=== PATIENT | male | born 1955 | race Caucasian/White ===

== ENCOUNTER 2017-11-20 11:50 | Emergency (ER) | payer OTHER ==
[2017-11-20] MEDS ORDERED: Sodium Chloride 0.9% 10 ML Syringe FLUSH PRN (12:07)
[2017-11-20] MEDS ORDERED: Diltiazem 25 MG/5 ML SDV IVPUSH ONE (12:12)
[2017-11-20] MEDS ORDERED: Diltiazem 25 MG/5 ML SDV ONE ×3 (12:14→12:29)
[2017-11-20 12:15] VITALS: BP 120/86
[2017-11-20 12:38] LABS: ANION GAP 15.3; CHLORIDE,CL 105 mmol/L (101-111); SODIUM,NA 138 mmol/L (135-145)
[2017-11-20] MEDS ORDERED: Diltiazem 125 MG in Sodium Chloride 0.9% 100 ML IV ONE (12:40)
--- NOTE | 2017-11-20 13:14 | EDM.PDOC ---
ED HPI GENERAL MEDICAL PROBLEM - General Chief Complaint: Syncope Stated Complaint: IN BY [facility] AMB. NO BP PER [id number] Time Seen by Provider: 11/20/17 11:57 Source of Information: Reports: Patient, EMS, EMS Notes Reviewed, RN, RN Notes Reviewed History Limitations: Reports: No Limitations - History of Present Illness INITIAL COMMENTS - FREE TEXT/NARRATIVE: Pt to ER per [facility] with c/o near syncope. Patient states he was at work and was going to stand up when he got very dizzy and weak with chest pain, SOB, and diaphoresis. Pt . states he felt better when he sat down. Denies radiation of the chest pain. Denies pain at this time. EMS states gluc 121 en route. Denies significant health history, HTN, high cholesterol, prostate issues, all being treated. Has been told that he has had an irregular heartrate in the past. Onset: Today, Sudden - Related Data Allergies Allergy/AdvReac Type Severity Reaction Status Date / Time No Known Allergies Allergy Verified 11/20/17 12:15 Home Meds: Home Meds Albuterol [Proair HFA] 2 puff INH Q6H PRN 09/29/15 [History] Fluticasone/Salmeterol [Advair 100-50 Diskus] 1 puff INH ASDIRECTED PRN [History] Lisinopril 10 mg PO DAILY 09/29/15 [History] Omeprazole 1 tab PO DAILY PRN 09/29/15 [History] Terazosin HCl [Terazosin] 3 mg PO DAILY 09/29/15 [History] Past Medical History HEENT History: Reports: Impaired Vision Other HEENT History: wears glasses Cardiovascular History: Reports: High Cholesterol, Hypertension Respiratory History: Reports: Other (See Below) Other Respiratory History: gets weezy at times Gastrointestinal History: Reports: GERD Genitourinary History: Reports: BPH Musculoskeletal History: Reports: Fracture Other Musculoskeletal History: FRACTURE RIGHT Neurological History: Reports: None Psychiatric History: Reports: None Endocrine/Metabolic History: Reports: Obesity/BMI 30+ Hematologic History: Reports: None Immunologic History: Reports: None Oncologic (Cancer) History: Reports: None Dermatologic History: Reports: None - Infectious Disease History Infectious Disease History: Reports: Chicken Pox - Past Surgical History Head Surgeries/Procedures: Reports: None Male Surgical History: Reports: Vasectomy Endocrine Surgical History: Reports: None Neurological Surgical History: Reports: None Oncologic Surgical History: Reports: None Dermatological Surgical History: Reports: None Social & Family History - Tobacco Use Smoking Status *Q: Never Smoker Second Hand Smoke Exposure: No - Caffeine Use Caffeine Use: Reports: Coffee - Recreational Drug Use Recreational Drug Use: No ED ROS GENERAL - Review of Systems Review Of Systems: ROS reveals no pertinent complaints other than HPI. ED EXAM, GENERAL - Physical Exam Exam: See Below Exam Limited By: No Limitations General Appearance: Alert, WD/WN, No Apparent Distress Eye Exam: Bilateral Eye: EOMI, Normal Inspection Ears: Normal External Exam, Hearing Grossly Normal Nose: Normal Inspection Throat/Mouth: Normal Inspection, Normal Voice, No Airway Compromise Head: Atraumatic, Normocephalic Neck: Normal Inspection, Supple, Non-Tender, Full Range of Motion Respiratory/Chest: No Respiratory Distress, Lungs Clear, Normal Breath Sounds, No Accessory Muscle Use, Chest Non-Tender Cardiovascular: Normal Peripheral Pulses, No Edema, No Gallop, No JVD, No Murmur , No Rub, Tachycardia, Irregularly Irregular Peripheral Pulses: 2+: Radial (L), Radial (R) GI/Abdominal: Normal Bowel Sounds, Soft, Non-Tender, No Organomegaly, No Distention, No Abnormal Bruit, No Mass, Pelvis Stable (Male) Exam: Deferred Rectal (Males) Exam: Deferred Back Exam: Normal Inspection, Full Range of Motion, NT Extremities: Normal Inspection, Normal Range of Motion, Non-Tender, Normal Capillary Refill, No Pedal Edema Neurological: Alert, Oriented, CN II-XII Intact, Normal Cognition, Normal Gait, Normal Reflexes, No Motor/Sensory Deficits Psychiatric: Normal Affect, Normal Mood Skin Exam: Warm, Dry, Intact, Normal Color, No Rash Lymphatic: No Adenopathy EKG INTERPRETATION EKG Date: 11/20/17 Time: 11:56 Rhythm: A-Fib Rate (Beats/Min): 141 Comparison: NA - No Prior EKG EKG Interpretation Comments: PVC Course - Vital Signs Last Recorded V/S: Last Vital Signs Temp 97.6 F 11/20/17 12:03 Pulse 75 11/20/17 12:03 Resp 16 11/20/17 12:03 BP 120/86 11/20/17 12:03 Pulse Ox 98 11/20/17 12:03 Orthostatic Blood Pressure [ 129/106 Standing] Orthostatic Blood Pressure [ 116/71 Supine] - Orders/Labs/Meds Orders: Active Orders 24 hr Category Date Time Status EKG Documentation Completion [RC] STAT Care 11/20/17 12:07 Active Peripheral IV Care [RC] . DIRECTED Care 11/20/17 12:07 Active Chest 1V Frontal [CR] Stat Exams 11/20/17 12:07 Ordered UA W/MICROSCOPIC [URIN] Stat Lab 11/20/17 11:55 Received Sodium Chloride 0.9% [Normal Saline] 1,000 ml Med 11/20/17 13:15 Active IV ASDIRECTED Sodium Chloride 0.9% [Normal Saline] 100 ml Med 11/20/17 12:40 Active Diltiazem 125 mg IV 5 mg/hr Sodium Chloride 0.9% [Saline Flush] Med 11/20/17 12:07 Active 10 ml FLUSH ASDIRECTED PRN Peripheral IV Insertion Adult [OM.PC] Stat Oth 11/20/17 12:07 Ordered Medication Orders Diltiazem HCl 125 mg/ Sodium (Chloride) 125 mls @ 5 mls/hr IV .Q24H ONE; Protocol Stop: 11/21/17 12:39 Last Admin: 11/20/17 12:44 Dose: 5 mg/hr, 5 mls/hr Sodium Chloride (Normal Saline) 1,000 mls @ 100 mls/hr IV ASDIRECTED [facility] Last Admin: 11/20/17 12:00 Dose: 100 mls/hr Sodium Chloride (Saline Flush) 10 ml FLUSH ASDIRECTED PRN PRN Reason: Keep Vein Open Last Admin: 11/20/17 12:00 Dose: 10 ml Labs: Laboratory Tests 11/20/17 11/20/17 Range/Units 12:09 12:09 WBC 10.3 H (5.0-10.0) 10^3/uL RBC 5.15 (4.6-6.2) 10^6/uL Hgb 15.4 (14.0-18.0) g/dL Hct 45.5 (40.0-54.0) % MCV 88.3 (80-100) fL MCH 29.9 (27.0-34.0) pg MCHC 33.8 (33.0-35.0) g/dL Plt Count 216 (150-450) 10^3/uL Neut % (Auto) 74.8 (42.2-75.2) % Lymph % (Auto) 17.6 L (20.5-50.1) % [place] % (Auto) 6.2 (2-8) % Eos % (Auto) 1.1 (1.0-3.0) % Baso % (Auto) 0.3 (0.0-1.0) % Sodium 138 (135-145) mmol/L Potassium 4.3 (3.6-5.0) mmol/L Chloride 105 (101-111) mmol/L Carbon Dioxide 22.0 (21.0-31.0) mmol/L Anion Gap 15.3 BUN 16 (7-18) mg/dL Creatinine 1.3 (0.6-1.3) mg/dL Est Cr Clr Drug Dosing 65.73 mL/min Estimated GFR (MDRD) 56 BUN/Creatinine Ratio 12.30 Glucose 116 H (74-105) mg/dL Calcium 9.2 (8.4-10.2) mg/dl Total Bilirubin 0.8 (0.2-1.0) mg/dL AST 33 (10-42) IU/L ALT 38 (10-60) IU/L Alkaline Phosphatase 57 (42-121) IU/L Troponin I < 0.02 (0.00-0.02) ng/ml Total Protein 7.8 (6.7-8.2) g/dl Albumin 4.6 (3.2-5.5) g/dl Globulin 3.2 Albumin/Globulin Ratio 1.44 Meds: Medications Generic Name Dose Route Start Last Admin Trade Name Freq PRN Reason Stop Dose Admin Diltiazem HCl 125 mg/ Sodium 125 mls @ 5 mls/hr 11/20/17 12:40 11/20/17 12:44 Chloride IV 11/21/17 12:39 5 mg/hr .Q24H ONE 5 mls/hr Administration Protocol 5 MG/HR Sodium Chloride 1,000 mls @ 100 mls/hr 11/20/17 13:15 11/20/17 12:00 Normal Saline IV 100 mls/hr ASDIRECTED KATHY Administration Sodium Chloride 10 ml 11/20/17 12:07 11/20/17 12:00 Saline Flush FLUSH 10 ml ASDIRECTED PRN Administration Keep Vein Open Discontinued Medications Generic Name Dose Route Start Last Admin Trade Name Freq PRN Reason Stop Dose Admin Diltiazem HCl 20 mg 11/20/17 12:12 11/20/17 12:18 Diltiazem IVPUSH 11/20/17 12:13 20 mg ONETIME ONE Administration Diltiazem HCl Confirm 11/20/17 12:14 11/20/17 12:19 Diltiazem Administered 11/20/17 12:15 Not Given Dose 25 mg .ROUTE .STK-MED ONE Diltiazem HCl Confirm 11/20/17 12:26 11/20/17 12:38 Diltiazem Administered 11/20/17 12:27 Not Given Dose 25 mg .ROUTE .STK-MED ONE Diltiazem HCl Confirm 11/20/17 12:29 11/20/17 12:38 Diltiazem Administered 11/20/17 12:30 Not Given Dose 25 mg .ROUTE .STK-MED ONE Departure - Departure Time of Disposition: 13:12 Disposition: DC/Tfer to Acute Hospital 02 Reason for Transfer *Q: Other Condition: Fair, Serious Clinical Impression: Atrial fibrillation with RVR, Multifocal PVCs Referrals: Radha Greene MD [Primary Care Provider] - Forms: ED Department Discharge, Interfacility Transfer EMTALA - My Orders Last 24 Hours: My Active Orders 11/20/17 11:55 UA W/MICROSCOPIC [URIN] Stat 11/20/17 12:07 EKG Documentation Completion [RC] STAT Peripheral IV Care [RC] . DIRECTED Chest 1V Frontal [CR] Stat Sodium Chloride 0.9% [Saline Flush] 10 ml FLUSH ASDIRECTED PRN Peripheral IV Insertion Adult [OM.PC] Stat 11/20/17 12:40 Sodium Chloride 0.9% [Normal Saline] 100 ml Diltiazem 125 mg IV 5 mg/hr 11/20/17 13:15 Sodium Chloride 0.9% [Normal Saline] 1,000 ml IV ASDIRECTED - Assessment/Plan Last 24 Hours: My Active Orders 11/20/17 11:55 UA W/MICROSCOPIC [URIN] Stat 11/20/17 12:07 EKG Documentation Completion [RC] STAT Peripheral IV Care [RC] . DIRECTED Chest 1V Frontal [CR] Stat Sodium Chloride 0.9% [Saline Flush] 10 ml FLUSH ASDIRECTED PRN Peripheral IV Insertion Adult [OM.PC] Stat 11/20/17 12:40 Sodium Chloride 0.9% [Normal Saline] 100 ml Diltiazem 125 mg IV 5 mg/hr 11/20/17 13:15 Sodium Chloride 0.9% [Normal Saline] 1,000 ml IV ASDIRECTED
[2017-11-20] MEDS ORDERED: Sodium Chloride 0.9% 1,000 ML IV SCH (13:15)
--- NOTE | 2017-11-20 13:33 | CR ---
Clinical history: 62-year-old male experiencing chest pain. Interpretation: No acute cardiopulmonary abnormality. Upright AP portable chest film reveals normal cardiac silhouette without cephalization of vascular fl ow, signs of alveolar edema or dependent pleural effusion. External cardiac monitor technician leads. Hypertrophic arthritic changes dorsal spine. No lung mass, hilar lymphadenopathy or focal lobar pneumonia. CONCLUSION: No new cardiopulmonary abnormality since 13 October 2011 PA film.
--- NOTE | 2017-11-23 18:11 | EKG ---
11/20/2017 - [facility] - FINDINGS: EKG per my reading, shows atrial fibrillation with rapid ventricular rate in the 140s. MOD /[id number]
== END 2017-11-20 13:30 ==
LOC: DL.ED 11:50
DX: I48.91 Unspecified atrial fibrillation (principal); I49.3 Ventricular premature depolarization; I10 Essential (primary) hypertension; E78.00 Pure hypercholesterolemia, unspecified; K21.9 Gastro-esophageal reflux disease without esophagitis; Z79.899 Other long term (current) drug therapy
CPT/HCPCS: 36415; 71045; 80053; 81001; 84484; 85025; 93005; 96361; 96365; 96376; 99285; J3490; J7030; J7050

== ENCOUNTER 2019-07-29 05:56 | Day surgery (SDC) | payer OTHER ==
[~2019-07-29 05:56] MED LIST: Dextrose 5%-0.45% NaCl 1,000 ML IV SCH; Sodium Chloride 0.9% 10 ML Syringe FLUSH PRN
[2019-07-29] MEDS ORDERED: Midazolam 1 MG/ML 2 ML SDV IV ONE ×7 (05:57→07:04)
[2019-07-29] MEDS ORDERED: fentaNYL 100 MCG/2 ML SDV IV ONE ×6 (05:57→07:18)
[2019-07-29] MEDS ORDERED: fentaNYL 100 MCG/2 ML SDV ONE (06:22)
[2019-07-29] MEDS ORDERED: Midazolam 1 MG/ML 2 ML SDV ONE (06:22)
[2019-07-29 09:14] VITALS: BP 128/81; PULSE 58
--- NOTE | 2019-07-29 10:33 | OR ---
DATE: 07/29/2019 PROCEDURE: Total colonoscopy, NBI, and multiple cold snare polypectomies. INSTRUMENT USED: PCF-H190DL Olympus video colonoscope. PREMEDICATIONS: Fentanyl 175 mcg intravenous, Versed 4 mg intravenous. Nasal O2 cannula. The procedure was done under pulse oximetry, BP recording and quality assurance monitor body. INDICATION: Patient with previous multiple colonic polyps removal and positive family history of colon cancer. Colonoscopy examination is done for detection of any polypoid lesions and removal, endoscopic hemostasis therapy if needed. DESCRIPTION OF PROCEDURE: Initial rectal exam showed considerable deformity of the perianal area. Rigid anoscopy showed small internal hemorrhoids without bleeding from them. The colonoscope was passed with ease. Numerous scattered wide-mouthed diverticula were noted in the distal left colon along with deformity. In the proximal sigmoid colon, diminutive benign-appearing polyps 3 in number were noted, NBI views were obtained, photographs were taken, cold snare polypectomies were done, the tissues were retrieved and sent for histopathology. In the distal descending colon, another diminutive polyp was noted, cold snare polypectomy was done, the tissue was retrieved and sent for histopathology. The colon was found to be long and redundant, the examination was a bit prolonged. The scope was passed up to the cecal area, photographs were taken of the normal-appearing cecum, identified by double-bulged ileocecal folds. Photographs were taken of the cecum, no bleeding was noted from any of the visualized areas. At the commencement of the examination, the bowel preparation was found to be adequate, [place] scale 2 in all the regions, total score 6. No stricture. No vascular ectasia. No large isolated ulcerations seen. No evidence of diffuse inflammatory bowel disease in the form of friability, contact bleeding or ulcerations. Probing the proximal sides of folds and flexures using adequate distention and clearing up the stool material, withdrawal of the scope was made, cecum to rectum time over 6 minutes. No bleeding was noted from any of the visualized areas at the completion of examination. IMPRESSION: 1. Internal hemorrhoids. 2. Diverticulosis. 3. Diminutive colonic polyps. The patient tolerated the procedure well. [facility] /[id number]
== END 2019-07-29 09:23 | disposition home or self-care (01) ==
LOC: DL.ENDO 05:56
PROVIDERS: ATTEND Internal Medicine Gastroenterology
DX: D12.5 Benign neoplasm of sigmoid colon (principal); K61.0 Anal abscess; K57.30 Diverticulosis of large intestine without perforation or abscess without bleeding; K64.8 Other hemorrhoids; I10 Essential (primary) hypertension; E66.09 Other obesity due to excess calories; N40.0 Benign prostatic hyperplasia without lower urinary tract symptoms; I48.0 Paroxysmal atrial fibrillation; Z86.010 Personal history of colon polyps; Z80.0 Family history of malignant neoplasm of digestive organs; Z68.39 Body mass index [BMI] 39.0-39.9, adult
CPT/HCPCS: 45385; J2250; J3010; J7042